=== PATIENT | male | born 1975 | race Asian ===

== ENCOUNTER → 2016-10-26 | Outpatient (CLI) | payer BC | LOC: FIMAGING 12:19 → EDSTATUS 12:20 | PROVIDERS: ATTEND Family Medicine | DX: M25.562 Pain in left knee (principal) ==

== ENCOUNTER → 2016-11-07 | Outpatient (CLI) | payer BC | LOC: BMCIMAGING 10:28 | PROVIDERS: ATTEND Family Medicine | DX: R05 Cough (principal); R07.89 Other chest pain; F17.200 Nicotine dependence, unspecified, uncomplicated ==